=== PATIENT | male | born 1960 | race Caucasian/White ===

== ENCOUNTER 2016-09-13 20:07 | Emergency (ER) | payer BC ==
[~2016-09-13] VITALS: Ht 188 cm; Wt 102.3 kg
[~2016-09-13 20:07] MED LIST: ATORVASTATIN
[2016-09-13 20:08] VITALS: BP 132/96; TEMP 97.8
[2016-09-13] MEDS ORDERED: GLUCOPHAGE500 MG/TAB PO (20:12)
[2016-09-13] MEDS ORDERED: UNKNOWN BP MED (20:19)
[2016-09-13] MEDS ORDERED: AMOXICILLIN 8751 TAB PO (20:48)
[2016-09-13] MEDS ORDERED: NORCO 325 MG-51 TAB PO (20:48)
[2016-09-13 20:55] VITALS: PULSE 95
== END 2016-09-13 20:55 | disposition home or self-care (01) ==
LOC: COL.ER 20:07
DX: K08.89 Other specified disorders of teeth and supporting structures (principal); E11.9 Type 2 diabetes mellitus without complications; I10 Essential (primary) hypertension; Z87.891 Personal history of nicotine dependence; Z79.84 Long term (current) use of oral hypoglycemic drugs

== ENCOUNTER 2021-04-05 13:28 | Outpatient (CLI) | payer OTHER ==
[~2021-04-05] VITALS: Ht 188 cm; Wt 97.2 kg
[~2021-04-05 13:28] MED LIST changes: +AMOXICILLIN 8751 TAB PO; +GLUCOPHAGE1000 MG PO; +NORCO 325 MG-51 TAB PO; +UNKNOWN BP MED
[2021-04-05 14:49] LABS: COLLECTION METHOD CLEAN CATCH
[2021-04-05 14:52] LABS: HEMATOCRIT 42.8 % (42.0-52.0); HEMOGLOBIN 15.3 g/dl (13.5-18.0); MEAN CELL VOLUME 82 fl (80.0-100.0); MEAN CORPUSCULAR HEMOGLOBIN 29 pg (27.0-31.0); MEAN CORPUSCULAR HGB CONC 36 g/dl (33.0-37.0); MEAN PLATELET VOLUME 11.5 fl (7.4-10.4); PLATELET COUNT 191 K/mm3 (130-400); RED BLOOD COUNT 5.21 M/mm3 (4.20-5.60); REDCELL DISTRIBUTION WIDTH-CV 14.3 % (11.5-14.5)
[2021-04-05 15:03] LABS: MUCOUS Present /lpf; PH 5 (5-8); SQUAMOUS EPITHELIAL 0-2 /hpf; URINE APPEARANCE Cloudy; URINE BACTERIA None Seen /hpf; URINE BILIRUBIN Negative (NEGATIVE); URINE BLOOD 2+ (NEGATIVE); URINE COLOR Yellow; URINE GLUCOSE Negative (NEGATIVE); URINE KETONE Negative (NEGATIVE); URINE LEUKOCYTE ESTERASE Negative (NEGATIVE); URINE NITRATE Negative (NEGATIVE); URINE PROTEIN(semi-quant) 1+ (NEGATIVE); URINE UROBILINOGEN Negative (NEGATIVE)
[2021-04-05 15:06] LABS: ALBUMIN 2.8 gm/dL (3.5-5.0); BILIRUBIN,TOTAL 0.4 mg/dL (0.2-1.2); CALCIUM 9.1 mg/dL (8.4-10.2); CREATININE, serum 3.18 mg/dL (0.72-1.25); POTASSIUM 3.8 mmol/L (3.5-4.5); TOTAL PROTEIN 7.3 gm/dL (6.2-8.1)
[2021-04-05 16:00] VITALS: BP 121/76; PULSE 106; TEMP 102.5
[2021-04-05] MEDS ORDERED: BENICAR HCT 12.1 TA1 PO (16:22)
[2021-04-05 18:10] VITALS: BP 101/68; PULSE 103; TEMP 100.5
[2021-04-06] MEDS ORDERED: RYBELSUS14 MG PO (14:33)
[2021-04-06] MEDS ORDERED: GLUCOPHAGE1000 MG PO (14:34)
[2021-04-06] MEDS ORDERED: NICODERM C14 MG/PATC TD (14:34)
[2021-04-06] MEDS ORDERED: LIPITOR 80MG80 MG PO (14:34)
[2021-04-06] MEDS ORDERED: ASPIRIN 81M81 MG/TA2 PO (14:35)
[2021-04-06] MEDS ORDERED: AMOXICILLIN 8751 TAB PO (14:38)
[2021-04-06] MEDS ORDERED: MOTRIN 200200 MG/TAB PO (14:43)
== END 2021-04-05 18:33 | disposition home or self-care (01) ==
LOC: EUO 13:28 → EDSTATUS 13:30 → EUO 13:30
PROVIDERS: Obstetrics & Gynecology
DX: N39.0 Urinary tract infection, site not specified (principal); E86.0 Dehydration; Z79.899 Other long term (current) drug therapy
CPT/HCPCS: J7030

== ENCOUNTER 2021-04-06 14:08 | Inpatient (IN) | payer OTHER ==
[~2021-04-06] VITALS: Ht 188 cm; Wt 101.3 kg
[~2021-04-06 14:08] MED LIST changes: +BENICAR HCT 12.1 TA1 PO
[2021-04-06] MEDS ORDERED: RYBELSUS14 MG PO (14:33)
[2021-04-06] MEDS ORDERED: LIPITOR 80MG80 MG PO (14:34)
[2021-04-06] MEDS ORDERED: GLUCOPHAGE1000 MG PO (14:34)
[2021-04-06] MEDS ORDERED: NICODERM C14 MG/PATC TD (14:34)
[2021-04-06] MEDS ORDERED: ASPIRIN 81M81 MG/TA2 PO (14:35)
[2021-04-06] MEDS ORDERED: AMOXICILLIN 8751 TAB PO (14:38)
[2021-04-06] MEDS ORDERED: MOTRIN 200200 MG/TAB PO (14:43)
[2021-04-06 14:58] VITALS: BP 147/92; PULSE 106; TEMP 98.9
[2021-04-06 16:10] VITALS: BP 117/75; PULSE 116; TEMP 102.8
--- NOTE | 2021-04-06 16:10 | NUR ---
Patient admitted to room 327. Alert & oriented. at bedside. Patient having chills, fever. Amira Fajardo aware. Orders obtained. Urine to lab. Ekg completed. Ivf started by Tuyet TRIPATHI. Ivf started. Labs & blood culture completed. Med rec & admission completed. Patient has not felt well in a week. Will monitor. closely.
[2021-04-06 16:25] LABS: HEMOGLOBIN 13.8 g/dl (13.5-18.0); MEAN CELL VOLUME 81 fl (80.0-100.0); MEAN CORPUSCULAR HEMOGLOBIN 29 pg (27.0-31.0); MEAN CORPUSCULAR HGB CONC 35 g/dl (33.0-37.0); MEAN PLATELET VOLUME 11.6 fl (7.4-10.4); PLATELET COUNT 193 K/mm3 (130-400); RED BLOOD COUNT 4.81 M/mm3 (4.20-5.60); REDCELL DISTRIBUTION WIDTH-CV 14.3 % (11.5-14.5)
[2021-04-06 16:37] LABS: MUCOUS Present /lpf; PH 5 (5-8); SQUAMOUS EPITHELIAL None Seen /hpf; URINE APPEARANCE Hazy; URINE BACTERIA None Seen /hpf; URINE BILIRUBIN Negative (NEGATIVE); URINE BLOOD 2+ (NEGATIVE); URINE COLOR Yellow; URINE GLUCOSE 2+ (NEGATIVE); URINE KETONE Negative (NEGATIVE); URINE LEUKOCYTE ESTERASE Negative (NEGATIVE); URINE NITRATE Negative (NEGATIVE); URINE PROTEIN(semi-quant) 1+ (NEGATIVE); URINE RBC 0-2 /hpf; URINE UROBILINOGEN Negative (NEGATIVE)
[2021-04-06 16:40] LABS: COLLECTION METHOD CLEAN CATCH
[2021-04-06 17:46] VITALS: BP 128/77; PULSE 105; TEMP 102.1
[2021-04-06 18:06] LABS: ALBUMIN 2.5 gm/dL (3.5-5.0); BILIRUBIN,TOTAL 0.4 mg/dL (0.2-1.2); CREATININE, serum 2.17 mg/dL (0.72-1.25); POTASSIUM 3.3 mmol/L (3.5-4.5); TOTAL PROTEIN 6.4 gm/dL (6.2-8.1)
[2021-04-06 18:17] LABS: BAND 11 % (0-10); EOSINOPHIL 1 % (0-4); HYPOCHROMIA 1+; LYMPHOCYTE 17 % (20.0-51.0); NEUTROPHILS 64 % (42.0-75.2); PLATELET ESTIMATE NORMAL (NORMAL)
[2021-04-06 18:50] LABS: CALCIUM 9.1 mg/dL (8.4-10.2)
--- NOTE | 2021-04-06 19:03 | NUR ---
Spoke to avionics repair technician, He will be up to get patient once done in ER. Patient will also recieve 2 view chest xray while downstairs. Patient finished his oral contrast. Called labs to Yaa MORIN. Delay in labs due to hemalyzed sample. Made Deepa aware of lactic level, low potassium level. Orders obtained. Patient NPO until returns from CT scan. Iv fluid bolus continue per sepsis protocol. He is voiding using urinal, small amounts at time fairly frequently. Supportive remains at bedside. Bedside report to Esther
[2021-04-06 20:00] VITALS: BP 129/65; PULSE 89; TEMP 101.3
--- NOTE | 2021-04-06 21:39 | NUR ---
Patient alert and oriented. Patient denies any pain, N/V, or diarrhea. Patient currently on oxygen 3L via NC. Breathing even and unlabored. Patient denies SOB or dyspnea while at rest. IVF infusing per AUG. Temp 101.3 tonight. Patient received Tylenol around 16:30 pm this afternoon. Will give Tylenol around 22:30 pm for fever. Potassium replaced per protocol. Call light in reach. Will continue to monitor.
--- NOTE | 2021-04-06 22:07 | NUR ---
Vancomycin Initial Dosing Pharmacy Note Ordering provider: Jeane Cardozo MD Indication/duration: PNA / 7 DAYS Trough goal: 15-20 DOSING HX: NONE IDENTIFIED BMI: 28.1 Wt:99.2 kg SCR: 2.17 ESTCRCL: ~52 ML/MIN T 1/2 ~ 15H TMAX: 102.8 WBC: 12.5 LA: 3.3 -> 1.8 MICRO IN PROCESS IMAGING REPORTING CONCERN FOR POSSIBLE PNA PT WAS LOADED WITH 2 GM OF VANCO. PT THEN STARTED ON A MAINTENANCE REGIMEN OF 1.5 GM Q18H. WILL FOLLOW RENAL FUNCTION, MICRO, AND TREATMENT PLAN FOR NEED TO ADJUST THERAPY. THANK YOU FOR THIS DOSING CONSULT!
[2021-04-06 23:56] VITALS: BP 110/63; PULSE 89; TEMP 99.5
[2021-04-07 03:59] VITALS: BP 148/82; PULSE 85; TEMP 99
[2021-04-07 07:16] LABS: HEMOGLOBIN 12.6 g/dl (13.5-18.0); MEAN CELL VOLUME 85 fl (80.0-100.0); MEAN CORPUSCULAR HEMOGLOBIN 29 pg (27.0-31.0); MEAN CORPUSCULAR HGB CONC 34 g/dl (33.0-37.0); MEAN PLATELET VOLUME 11.7 fl (7.4-10.4); PLATELET COUNT 230 K/mm3 (130-400); RED BLOOD COUNT 4.33 M/mm3 (4.20-5.60); REDCELL DISTRIBUTION WIDTH-CV 14.5 % (11.5-14.5)
[2021-04-07 07:20] LABS: HEMATOCRIT 36.9 % (42.0-52.0)
[2021-04-07 07:32] LABS: ALBUMIN 2.1 gm/dL (3.5-5.0); BILIRUBIN,TOTAL 0.4 mg/dL (0.2-1.2); CREATININE, serum 1.86 mg/dL (0.72-1.25); POTASSIUM 3.4 mmol/L (3.5-4.5); TOTAL PROTEIN 5.3 gm/dL (6.2-8.1)
[2021-04-07 08:00] VITALS: BP 158/78; PULSE 89; TEMP 101.1
[2021-04-07 08:13] LABS: BAND 27 % (0-10); LYMPHOCYTE 22 % (20.0-51.0); METAMYELOCYTE 1 % (0-0); NEUTROPHILS 41 % (42.0-75.2); PLATELET ESTIMATE NORMAL (NORMAL)
--- NOTE | 2021-04-07 11:19 | NUR ---
Organic Preparation Technician offered prayer and support with patient while spouse was in room.
[2021-04-07 11:24] VITALS: BP 117/76; PULSE 86; TEMP 98.5
[2021-04-07 15:22] LABS: TRICYCLIC ANTIDEPRESS URINE NEGATIVE
--- NOTE | 2021-04-07 15:30 | NUR ---
Arthur reports that they reside in [facility] with Sejal and DTR Tanya . Patient indicated that he sees Dr. Pierce and uses [facility] for medications without concerns. Patient indicated that they do not understand concerns and why he feels sick. Patient educated on case managment supports, denies any DME use or home health. Will continue to follow.
[2021-04-07 15:39] VITALS: BP 116/71; PULSE 70; TEMP 97.8
--- NOTE | 2021-04-07 18:40 | NUR ---
Patient doing well throughout the day. Has been up in room with steady gait. Spouse at bedside througout the day. Denies pain at this time. Iv fluids and antibiotics infusing per orders. Denies needs at this time. Will report off to night supervisor.
[2021-04-07 20:01] VITALS: BP 123/71; PULSE 81; TEMP 98.6
--- NOTE | 2021-04-07 20:30 | NUR ---
PT IN BED. IS ALERT AND ORIENTED X4. AFEBRILE AT THIS TIME. HAS IVF TO LEFT AC INFUSING WITHOUT REDNESS OR SWELLING. HAS SL TO LEFT HAND, FLUSHES WELL. PT REPORTS FEELING BETTER TODAY THAN ON ADMIT. TAKING FLUIDS AND FOOD WITHOUT N/V. DENIES DIARRHEA. HAS WOUND TO LEFT LOWER BACK WITH REDNESS SURROUNDING AND BLACK CENTER. PT REPORTS HE THOUGHT IT WAS A SPIDER BITE AND HAS HAD IT OVER A WEEK OR 2. DENIES PAIN AT THIS TIME.
[2021-04-08 00:46] VITALS: BP 127/74; PULSE 77; TEMP 98.8
[2021-04-08 04:17] VITALS: BP 127/78; PULSE 70; TEMP 98.2
--- NOTE | 2021-04-08 06:00 | NUR ---
PT UP TO BATHROOM, HAS MOD LOOSE YELLOW BM REPORTED BY PATIENT. HAS BEEN AFEBRILE THIS SHIFT.
[2021-04-08 07:43] LABS: HEMOGLOBIN 11.5 g/dl (13.5-18.0); MEAN CELL VOLUME 83 fl (80.0-100.0); MEAN CORPUSCULAR HEMOGLOBIN 29 pg (27.0-31.0); MEAN CORPUSCULAR HGB CONC 34 g/dl (33.0-37.0); MEAN PLATELET VOLUME 11.4 fl (7.4-10.4); PLATELET COUNT 256 K/mm3 (130-400); RED BLOOD COUNT 4.02 M/mm3 (4.20-5.60); REDCELL DISTRIBUTION WIDTH-CV 14.8 % (11.5-14.5)
[2021-04-08 07:44] LABS: HEMATOCRIT 33.4 % (42.0-52.0)
[2021-04-08 07:51] VITALS: BP 132/73; PULSE 75; TEMP 98
--- NOTE | 2021-04-08 08:00 | NUR ---
PT PLEASANT, AOX4, DENIES PAIN, MEDICATIONS GIVEN, ASSESSMENT PERFORMED, CALL LIGHT WITHIN REACH, AT BEDSIDE, NO OTHER NEEDS
[2021-04-08 08:14] LABS: BAND 12 % (0-10); LYMPHOCYTE 40 % (20.0-51.0); METAMYELOCYTE 1 % (0-0); NEUTROPHILS 41 % (42.0-75.2); PLATELET ESTIMATE NORMAL (NORMAL)
[2021-04-08 08:18] LABS: CALCIUM 7.9 mg/dL (8.4-10.2); CREATININE, serum 1.27 mg/dL (0.72-1.25)
[2021-04-08 12:00] VITALS: BP 150/84; PULSE 73; TEMP 97.8
[2021-04-08 15:45] VITALS: BP 131/83; PULSE 83; TEMP 97.8
--- NOTE | 2021-04-08 17:12 | NUR ---
pt pleasant, denies pain, aox4, no fever during shift, iv fluids infusing, no other needs
[2021-04-08 19:46] VITALS: BP 131/93; PULSE 76; TEMP 98.9
[2021-04-09] VITALS (12 sets, daily range): BP systolic 143–162; BP diastolic 77–94; PULSE 66–96; TEMP 97.7–98.8
--- NOTE | 2021-04-09 04:10 | NUR ---
PT AWAKENED FOR LAB DRAWS. VANCOMYCIN IV STARTED TO INFUSE AFTER TROUGH IS DRAWN. PT IS PLEASANT ET REQUESTS ICE WATER. DENIES OTHER NEEDS @ THIS TIME, CALL, LIGHT WITHIN REACH.
[2021-04-09 04:27] LABS: HEMOGLOBIN 11.1 g/dl (13.5-18.0); MEAN CELL VOLUME 86 fl (80.0-100.0); MEAN CORPUSCULAR HEMOGLOBIN 29 pg (27.0-31.0); MEAN CORPUSCULAR HGB CONC 34 g/dl (33.0-37.0); MEAN PLATELET VOLUME 10.8 fl (7.4-10.4); PLATELET COUNT 265 K/mm3 (130-400); RED BLOOD COUNT 3.77 M/mm3 (4.20-5.60)
[2021-04-09 04:32] LABS: HEMATOCRIT 32.4 % (42.0-52.0)
[2021-04-09 05:18] LABS: BAND 1 % (0-10); EOSINOPHIL 1 % (0-4); LYMPHOCYTE 44 % (20.0-51.0); METAMYELOCYTE 1 % (0-0); NEUTROPHILS 49 % (42.0-75.2); PLATELET ESTIMATE NORMAL (NORMAL)
--- NOTE | 2021-04-09 06:41 | NUR ---
RADIOLOGY CALLED THIS NURSE TO CLARIFY THAT PT WAS TO HAVE ROSE[facility]NA DONE TODAY. PT HAS NOT BEEN NPO. HAS BEEN SIPPING ON WATER OVERNIGHT. PT INSTRUCTED TO REMAIN NPO @ THIS TIME.
[2021-04-09 08:02] LABS: CREATININE, serum 1.15 mg/dL (0.72-1.25); MAGNESIUM 1.8 mg/dL (1.6-2.6); POTASSIUM 3.4 mmol/L (3.5-4.5)
--- NOTE | 2021-04-09 09:03 | NUR ---
Patient to ROSE[facility] by wheelchair.
--- NOTE | 2021-04-09 14:46 | NUR ---
Medicare Im form provided, and patient signed. Copy placed in chart, original given to patient.
[2021-04-09 18:40] LABS: C-ANCA 7 U/mL (0-99)
--- NOTE | 2021-04-09 19:12 | NUR ---
Patient doing well throughout the day, Has been up independently in room. Spouse at bedside. IV restarted to right hand x 1 attempt, removed Iv x2 to left forarm d/t leaking. Patient states he feels better today than she has other day. Patient denies further needs at this time. Will report off to table games shift manager.
--- NOTE | 2021-04-10 01:21 | NUR ---
ALERT AND OX4. DENIES SOA, CHEST PAIN OR DIZZY. NO GENERALIZED PAIN. POTASSIUM REPLACED PER PROTOCOL, DID REFUSED 2345 DOSE AND ASKED NURSING/AIDE TO REFUSE 0400AM VITALS AND BS THE REST OF THIS SHIFT. 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 IV FLUIDS AND ZOSYN RUNNING. IND IN ROOM. CALL LIGHT WI REACH. NEEDS MET.
[2021-04-10 07:36] VITALS: BP 151/87; PULSE 68; TEMP 98.3
[2021-04-10 07:54] LABS: HEMOGLOBIN 11.2 g/dl (13.5-18.0); MEAN CELL VOLUME 85 fl (80.0-100.0); MEAN CORPUSCULAR HEMOGLOBIN 29 pg (27.0-31.0); MEAN CORPUSCULAR HGB CONC 34 g/dl (33.0-37.0); MEAN PLATELET VOLUME 10.8 fl (7.4-10.4); PLATELET COUNT 308 K/mm3 (130-400); RED BLOOD COUNT 3.89 M/mm3 (4.20-5.60)
[2021-04-10 07:55] LABS: HEMATOCRIT 32.9 % (42.0-52.0)
[2021-04-10 09:00] LABS: ANISOCYTOSIS 1+; LYMPHOCYTE 45 % (20.0-51.0); NEUTROPHILS 54 % (42.0-75.2); PLATELET ESTIMATE NORMAL (NORMAL)
[2021-04-10 10:40] VITALS: BP 150/89; PULSE 74; TEMP 98.1
[2021-04-10] MEDS ORDERED: DOXYCYCLINE 10100 MG PO (11:53)
[2021-04-10] MEDS ORDERED: AMOXICILLIN 8751 TAB PO (11:54)
[2021-04-10] MEDS ORDERED: BENICAR40 MG PO (12:03)
[2021-04-10 12:49] LABS: CALCIUM 8.1 mg/dL (8.4-10.2); CREATININE, serum 1.1 mg/dL (0.72-1.25); POTASSIUM 3.6 mmol/L (3.4-5.0)
--- NOTE | 2021-04-10 13:20 | NUR ---
Discharge education provided to patient. Educated on when to call provider and all new medications and changes. Educated on follow up appointments. INT to right hand discontinued, catheter tip intact. Patient denies needs at this time. Patient out by wheelchair with spouse and surgical staff.
[2021-04-11 21:46] LABS: BLASTOMYCES AB Negative (Negative)
[2021-04-12 12:43] LABS: ANGIOTENSIN CONVERTING ENZYME 51 U/L (16 - 85)
[2021-04-13 07:21] LABS: .HISTOPLASMA ANTIGEN SERUM None Detected (())
[2021-04-13 15:13] LABS: HISTOPLASMA ID Negative (Negative); HISTOPLASMA MYCELIAL Negative (Negative); HISTOPLASMA YEAST Negative (Negative)
[2021-04-15 16:18] LABS: COCCIDIOIDES AB IGG Negative (Negative); COCCIDIOIDES AB IGM Negative (Negative); COCCIDIOIDES CF Negative (Negative)
== END 2021-04-10 13:20 | disposition home or self-care (01) | DRG 871 ==
LOC: SURG 14:08
PROVIDERS: Internal Medicine; Physician Assistant; ADMIT Student in an Organized Health Care Education/Training Program
DX: A41.9 Sepsis, unspecified organism (principal); J18.9 Pneumonia, unspecified organism; N17.9 Acute kidney failure, unspecified; E87.1 Hypo-osmolality and hyponatremia; N39.0 Urinary tract infection, site not specified; I76 Septic arterial embolism; A79.9 Rickettsiosis, unspecified; E11.9 Type 2 diabetes mellitus without complications; R65.20 Severe sepsis without septic shock; E78.5 Hyperlipidemia, unspecified; I10 Essential (primary) hypertension; Z79.84 Long term (current) use of oral hypoglycemic drugs; F17.210 Nicotine dependence, cigarettes, uncomplicated; E87.8 Other disorders of electrolyte and fluid balance, not elsewhere classified; R91.1 Solitary pulmonary nodule; R19.7 Diarrhea, unspecified; E87.6 Hypokalemia; E83.42 Hypomagnesemia; L98.9 Disorder of the skin and subcutaneous tissue, unspecified; T63.301A Toxic effect of unspecified spider venom, accidental (unintentional), initial encounter; Z20.822 Contact with and (suspected) exposure to COVID-19
CPT/HCPCS: 99222-AI; 99223-AI; 99233-AI; 99239; J1815; J2405; J2543; J2704; J3370; J3475; J7030; J7050; Q9967

== ENCOUNTER 2023-10-27 16:27 | Emergency (ER) | payer OTHER ==
[~2023-10-27] VITALS: Ht 188 cm; Wt 102.3 kg
[~2023-10-27 16:27] MED LIST changes: +ASPIRIN 81M81 MG/TA2 PO; +BENICAR40 MG PO; +DOXYCYCLINE 10100 MG PO; +LIPITOR 80MG80 MG PO; +MOTRIN 200200 MG/TAB PO; +NICODERM C14 MG/PATC TD; +RYBELSUS14 MG PO
[2023-10-27 16:33] VITALS: TEMP 98.7
[2023-10-27] MEDS ORDERED: Ketorolac 30 MG/ML VIAL IV ONE (18:45)
[2023-10-27] MEDS ORDERED: NS 1,000 ML IV ONE (18:45)
[2023-10-27 18:50] LABS: COLLECTION METHOD CLEAN CATCH
[2023-10-27 18:54] LABS: BASO % 0.2 % (0.0-2.0); EOS # 0.1 K/mm3 (0.0-0.7); EOS % 0.7 % (0.0-4.0); GRAN # 13.4 K/mm3 (1.4-6.5); GRAN % 74.6 % (42.2-75.2); HEMATOCRIT 46.8 % (42.0-52.0); HEMOGLOBIN 15.6 g/dl (13.5-18.0); LYMPH # 2.9 K/mm3 (1.2-3.4); LYMPH % 16.2 % (20.0-51.0); MEAN CELL VOLUME 88 fl (80.0-100.0); MEAN CORPUSCULAR HEMOGLOBIN 29 pg (27-31); MEAN CORPUSCULAR HGB CONC 33 g/dl (33.0-37.0); MEAN PLATELET VOLUME 9.8 fl (7.4-10.4); MONO # 1.4 K/mm3 (0.1-0.6); MONO % 7.9 % (1.7-9.3); PLATELET COUNT 248 K/mm3 (130-400); RED BLOOD COUNT 5.35 M/mm3 (4.20-5.60)
[2023-10-27 18:57] LABS: URINE APPEARANCE CLEAR (CLEAR/HAZY); URINE BLOOD 1+ (NEGATIVE); URINE COLOR YELLOW (YELLOW); URINE GLUCOSE 3+ (NEGATIVE); URINE KETONE TRACE (NEGATIVE); URINE NITRATE POSITIVE (NEGATIVE); URINE PROTEIN(semi-quant) TRACE (NEGATIVE); URINE UROBILINOGEN 0.2 E.U/dL (0.2-1.0)
[2023-10-27 19:27] LABS: ALBUMIN 3.5 g/dL (3.4-4.8); BILIRUBIN,TOTAL 0.4 mg/dL (0.2-1.2); CALCIUM 9.4 mg/dL (8.4-10.2); CREATININE, serum 1.24 mg/dL (0.72-1.25); POTASSIUM 3.7 mEq/L (3.5-4.5); TOTAL PROTEIN 7.1 g/dl (6.2-8.1)
[2023-10-27] MEDS ORDERED: Iohexol 300 - 100 ML VIAL IV ONE (19:50)
[2023-10-27] MEDS ORDERED: NS 50 ML IV SCH (19:50)
[2023-10-27] MEDS ORDERED: levoFLOXacin 750 MG TAB PO ONE (20:30)
[2023-10-27] MEDS ORDERED: LEVAQUIN 750MG750 M1 PO (20:33)
[2023-10-27 20:53] VITALS: BP 154/80; PULSE 88
== END 2023-10-27 20:54 | disposition home or self-care (01) ==
LOC: COL.ER 16:27
PROVIDERS: Nurse Practitioner Primary Care
DX: N39.0 Urinary tract infection, site not specified (principal)
CPT/HCPCS: J1885; J7030; Q9967